=== PATIENT | male | born 1990 | race Caucasian/White ===

== ENCOUNTER 2019-06-12 04:15 | Emergency (ER) | payer MEDICAID, OTHER ==
[~2019-06-12] VITALS: Ht 172.7 cm; Wt 90.0 kg
[~2019-06-12 04:15] MED LIST: VIC
[2019-06-12] MEDS ORDERED: LORAZEPAM 1MG TABLET PO ONE (05:30)
[2019-06-12 06:13] LABS: BASOPHILS % 0.2 % (0.0-2.0); HEMATOCRIT. 43.1 % (42.0-52.0); HEMOGLOBIN. 14.8 g/dL (14.0-18.0); LYMPHOCYTES % 15.5 % (20.0-50.0); MEAN CORPUSCULAR HEMOGLOBIN 29.7 pg (28.0-32.0); MEAN CORPUSCULAR VOLUME 86.7 fL (80.0-94.0); MEAN PLATELET VOLUME 8.2 fl (7.4-10.4); MONOCYTES % 6.3 % (2.0-8.0); PLATELET 221 x1000/uL (130-400); RED BLOOD CELL COUNT 4.97 mill/uL (4.7-6.1); RED CELL DISTRIBUTION WIDTH 14.5 % (11.6-14.6)
[2019-06-12 06:20] LABS: CHLORIDE 108 mEq/L (98-107)
[2019-06-12 06:26] LABS: ETHANOL BLOOD < 10 mg/dL
[2019-06-12] MEDS ORDERED: DIPHENHYDRAMINE 25MG CAPSULE PO ONE (10:00)
[2019-06-12] MEDS ORDERED: HALOPERIDOL LACTATE 5MG/ML VIAL IM ONE (10:00)
[2019-06-12 11:45] LABS: CLARITY URINE CLEAR (CLEAR); COLOR URINE YELLOW (YELLOW); KETONES URINE 3+ (NEGATIVE); LEUKOCYTE ESTERASE URINE NEGATIVE (NEGATIVE); NITRITE URINE NEGATIVE (NEGATIVE); OCCULT BLOOD URINE NEGATIVE (NEGATIVE); PH URINE 5.5 (4.5-8.0); PROTEIN URINE NEGATIVE (NEGATIVE); SPECIFIC GRAVITY URINE 1.019 (1.005-1.030); UROBILINOGEN URINE 0.2 E.U./dL (0.2-1.0)
[2019-06-12] MEDS ORDERED: DIPHENHYDRAMINE 50MG/ML VIAL IM ONE (11:45)
[2019-06-12 12:04] LABS: *AMPHETAMINES SCREEN URINE PRESUMTIVE POSITIVE (NEGATIVE); *BARBITURATES SCREEN URINE NEGATIVE (NEGATIVE); *BENZODIAZEPINES SCREEN URINE NEGATIVE (NEGATIVE); *COCAINE SCREEN URINE NEGATIVE (NEGATIVE)
[2019-06-12 12:05] LABS: CANNABINOID URINE SCREEN PRESUMTIVE POSITIVE (NEGATIVE); METHADONE URINE SCREEN NEGATIVE (NEGATIVE); OPIATES URINE SCREEN NEGATIVE (NEGATIVE); PHENCYCLIDINE URINE SCREEN NEGATIVE (NEGATIVE)
[2019-06-12] MEDS ORDERED: POTASSIUM CHLORIDE 20MEQ TABLET SR PO ONE (14:15)
[2019-06-13] MEDS: HALOPERIDOL LACTATE 5MG/ML VIAL IM PRN (03:26)
[2019-06-13] MEDS: DIPHENHYDRAMINE 50MG/ML VIAL IM PRN ×2 (03:26→18:07)
[2019-06-13] MEDS ORDERED: LORAZEPAM 1MG TABLET PO ONE (07:45)
[2019-06-13] MEDS ORDERED: LORAZEPAM 2MG/ML CPJ IM ONE ×2 (09:30→15:45)
[2019-06-14] MEDS: DIPHENHYDRAMINE 50MG/ML VIAL IM PRN ×3 (00:13→15:54)
[2019-06-14] MEDS: HALOPERIDOL LACTATE 5MG/ML VIAL IM PRN ×2 (00:13→15:54)
[2019-06-14] MEDS ORDERED: LORAZEPAM 1MG TABLET PO ONE (00:15)
[2019-06-14] MEDS ORDERED: ONDANSETRON HCL 4MG/2ML INJ IM ONE (05:00)
[2019-06-14] MEDS ORDERED: ACETAMINOPHEN 325MG TABLET PO ONE (12:15)
[2019-06-14] MEDS ORDERED: ZOLPIDEM TARTRATE 5MG TABLET PO ONE (23:00)
[2019-06-14] MEDS ORDERED: IBUPROFEN 200MG TABLET PO ONE (23:45)
[2019-06-15] MEDS ORDERED: IBUPROFEN 400MG TABLET PO ONE
[2019-06-15] MEDS ORDERED: IBUPROFEN 600MG TABLET PO ONE (09:00)
[2019-06-15] MEDS ORDERED: IBUPROFEN 600MG TABLET PO SCH (09:30)
[2019-06-15] MEDS ORDERED: HALOPERIDOL LACTATE 5MG/ML VIAL IM PRN (11:45)
[2019-06-15] MEDS: DIPHENHYDRAMINE 50MG/ML VIAL IM PRN ×2 (11:47→12:26)
[2019-06-15] MEDS ORDERED: LORAZEPAM 2MG/ML CPJ IM ONE (12:15)
[2019-06-16] MEDS ORDERED: IBUPROFEN 600MG TABLET PO ONE ×2 (06:30→06:45)
[2019-06-16] MEDS ORDERED: HALOPERIDOL LACTATE 5MG/ML VIAL IM PRN (06:45)
[2019-06-16] MEDS ORDERED: LORAZEPAM 1MG TABLET PO ONE (07:00)
[2019-06-16] MEDS: DIPHENHYDRAMINE 50MG/ML VIAL IM PRN ×2 (11:40→20:53)
[2019-06-16] MEDS ORDERED: IBUPROFEN 600MG TABLET PO STA (14:16)
[2019-06-16] MEDS ORDERED: KCL 10MEQ/50ML PREMIX 50 ML IV ONE (14:45)
[2019-06-16] MEDS ORDERED: POTASSIUM CHLORIDE 20MEQ TABLET SR PO ONE ×2 (14:45)
[2019-06-16 16:43] LABS: CHLORIDE 108 mEq/L (98-107)
[2019-06-17] MEDS: DIPHENHYDRAMINE 50MG/ML VIAL IM PRN (02:30)
[2019-06-17 10:30] VITALS: BP 120/86
== END 2019-06-17 10:32 | disposition home or self-care (01) ==
LOC: ER 04:15
DX: R45.851 Suicidal ideations (principal); R44.0 Auditory hallucinations; F41.9 Anxiety disorder, unspecified; F32.9 Major depressive disorder, single episode, unspecified
CPT/HCPCS: 36415; 80053; 80305; 80320; 81003; 85025; 93005; 96372; 99284; J1200; J1630; J2060; J2405; J3480; Q0163; Z7610; G0480

== ENCOUNTER 2019-06-28 19:11 | Emergency (ER) | payer MEDICAID ==
[~2019-06-28] VITALS: Ht 180.3 cm; Wt 100.0 kg
[2019-06-28] MEDS ORDERED: LORAZEPAM 1MG TABLET PO ONE (21:15)
[2019-06-28] MEDS ORDERED: OLANZAPINE 5MG TABLET ODT PO ONE (21:15)
[2019-06-28 21:58] LABS: BASOPHILS % 0.6 % (0.0-2.0); EOSINOPHILS % 0.1 % (0.0-5.0); HEMATOCRIT. 47.4 % (42.0-52.0); HEMOGLOBIN. 15.7 g/dL (14.0-18.0); LYMPHOCYTES % 12.6 % (20.0-50.0); MEAN CORPUSCULAR HEMOGLOBIN 28.7 pg (28.0-32.0); MEAN CORPUSCULAR VOLUME 86.6 fL (80.0-94.0); NEUTROPHILS % 78.7 % (40.0-76.0); PLATELET 295 x1000/uL (130-400); RED BLOOD CELL COUNT 5.47 mill/uL (4.7-6.1); RED CELL DISTRIBUTION WIDTH 14.6 % (11.6-14.6)
[2019-06-28 22:02] LABS: CLARITY URINE CLEAR (CLEAR); COLOR URINE DARK YELLOW (YELLOW); KETONES URINE 3+ (NEGATIVE); LEUKOCYTE ESTERASE URINE NEGATIVE (NEGATIVE); NITRITE URINE NEGATIVE (NEGATIVE); OCCULT BLOOD URINE 1+ (NEGATIVE); PH URINE 5.5 (4.5-8.0); PROTEIN URINE 2+ (NEGATIVE)
[2019-06-28 22:03] LABS: CHLORIDE 104 mEq/L (98-107)
[2019-06-28 22:07] LABS: ETHANOL BLOOD < 10 mg/dL
[2019-06-28 22:14] LABS: *AMPHETAMINES SCREEN URINE PRESUMTIVE POSITIVE (NEGATIVE); *BARBITURATES SCREEN URINE NEGATIVE (NEGATIVE); *BENZODIAZEPINES SCREEN URINE NEGATIVE (NEGATIVE); *COCAINE SCREEN URINE NEGATIVE (NEGATIVE)
[2019-06-28 22:15] LABS: CANNABINOID URINE SCREEN PRESUMTIVE POSITIVE (NEGATIVE); METHADONE URINE SCREEN NEGATIVE (NEGATIVE); OPIATES URINE SCREEN NEGATIVE (NEGATIVE); PHENCYCLIDINE URINE SCREEN NEGATIVE (NEGATIVE)
[2019-06-28] MEDS ORDERED: LORAZEPAM 2MG/ML CPJ IM ONE (22:15)
[2019-06-29] MEDS ORDERED: LORAZEPAM 1MG TABLET PO ONE (09:15)
[2019-06-29 11:30] VITALS: BP 139/82
== END 2019-06-29 11:33 | disposition home or self-care (01) ==
LOC: ER 19:11
DX: F23 Brief psychotic disorder (principal); F19.10 Other psychoactive substance abuse, uncomplicated; R79.89 Other specified abnormal findings of blood chemistry; F41.9 Anxiety disorder, unspecified; F31.9 Bipolar disorder, unspecified; F15.10 Other stimulant abuse, uncomplicated
CPT/HCPCS: 36415; 80053; 80305; 80307; 80320; 80329; 81003; 85025; 96372; 99284; J2060; Z7610; G0480

== ENCOUNTER 2022-01-09 13:16 | Emergency (ER) | payer MEDICAID ==
[~2022-01-09] VITALS: Ht 175.3 cm; Wt 109.0 kg
[2022-01-09 13:23] VITALS: BP 170/90
[2022-01-09] MEDS ORDERED: LORAZEPAM 1MG TABLET PO ONE (14:15)
[2022-01-09] MEDS ORDERED: LORAZEPAM 1MG TABLET PO NR (16:00)
[2022-01-09 16:05] LABS: BASOPHILS % 0.5 % (0.0-2.0); HEMATOCRIT. 47.2 % (42.0-52.0); HEMOGLOBIN. 15.7 g/dL (14.0-18.0); LYMPHOCYTES % 14.2 % (20.0-50.0); MEAN CORPUSCULAR HEMOGLOBIN 28.6 pg (28.0-32.0); MEAN PLATELET VOLUME 8.7 fl (7.4-10.4); MONOCYTES % 6.3 % (2.0-8.0); PLATELET 313 x1000/uL (130-400); RED BLOOD CELL COUNT 5.49 mill/uL (4.7-6.1); RED CELL DISTRIBUTION WIDTH 15.2 % (11.6-14.6)
[2022-01-09 16:11] LABS: CHLORIDE 107 mEq/L (98-107)
[2022-01-09 16:21] LABS: ETHANOL BLOOD < 10 mg/dL
[2022-01-09] MEDS ORDERED: POTASSIUM CHLORIDE 20MEQ TABLET SR PO ONE (16:30)
== END 2022-01-09 18:59 | disposition home or self-care (01) ==
LOC: ER 13:16
DX: F15.10 Other stimulant abuse, uncomplicated (principal); E87.6 Hypokalemia; F32.A Depression, unspecified; F41.9 Anxiety disorder, unspecified
CPT/HCPCS: 36415; 80053; 80307; 80320; 80329; 85025; 99284; G0480

== ENCOUNTER 2022-01-11 18:21 | Emergency (ER) | payer MEDICAID, OTHER ==
[~2022-01-11] VITALS: Ht 175.3 cm; Wt 94.0 kg
[2022-01-11 18:29] VITALS: BP 126/70
== END 2022-01-11 21:00 | disposition left against medical advice (07) ==
LOC: ER 18:21
DX: Z53.21 Procedure and treatment not carried out due to patient leaving prior to being seen by health care provider (principal)